=== PATIENT | female | born 1980 | race Two or more races ===

== ENCOUNTER 2019-03-01 19:56 | Emergency (ER) | payer BC ==
[~2019-03-01] VITALS: Ht 160 cm; Wt 107.2 kg
[2019-03-01 20:04] VITALS: BP 121/76; Ht 160 cm; Wt 107.2 kg
== END 2019-03-01 22:56 | disposition home or self-care (01) ==
LOC: ED 19:56
DX: N63.0 Unspecified lump in unspecified breast (principal); E11.9 Type 2 diabetes mellitus without complications
CPT/HCPCS: J1885